=== PATIENT | male | born 1970 ===

== ENCOUNTER → 2018-05-31 22:55 | Outpatient (REF) | payer OTHER, SELFPAY ==
[2018-05-31 23:38] LABS: Uric Acid 6.4 mg/dL (3.5-8.5)
[2018-06-06 16:14] LABS: Almond Allergy Class 0; Almond Allergy IgE < 0.10 kU/L (< 0.10); Cashew nut Allergy Class 0; Cashew nut Allergy IgE < 0.10 kU/L (< 0.10); Codfish Allergy Class 0; Codfish Allergy IgE < 0.10 kU/L (< 0.10); Cow Milk Allergy Class 0; Cow Milk Allergy IgE < 0.10 kU/L (< 0.10); Egg Whites IgE < 0.10 kU/L (< 0.10); Hazelnut Allergy Class 0; Hazelnut Allergy IgE < 0.10 kU/L (< 0.10); Peanut Allergy Class 0; Peanut Allergy IgE < 0.10 kU/L (< 0.10); Salmon Allergy Class 0; Salmon Allergy IgE < 0.10 kU/L (< 0.10); Scallop Allergy Class 0; Scallop Allergy IgE < 0.10 kU/L (< 0.10); Sesame seed Allergy Class 0; Sesame seed Allergy IgE < 0.10 kU/L (< 0.10); Shrimp Allergy Class 0; Shrimp Allergy IgE < 0.10 kU/L (< 0.10); Soybean Allergy Class 0; Soybean Allergy IgE < 0.10 kU/L (< 0.10); Tuna Allergy Class 0; Tuna Allergy IgE < 0.10 kU/L (< 0.10); Walnut Allergy Class 0; Walnut Allery IgE < 0.10 kU/L (< 0.10); Wheat Allergy Class 0; Wheat Allergy IgE < 0.10 kU/L (< 0.10)
== END ==
LOC: LAB 22:55
PROVIDERS: Visit Provider Family Medicine
DX: M10.10 Lead-induced gout, unspecified site (principal); L29.9 Pruritus, unspecified
CPT/HCPCS: 36415; 82785; 84550; 86003